=== PATIENT | female | born 1945 | race Caucasian/White ===

== ENCOUNTER 2019-04-12 15:53 | Outpatient (CLI) | payer MEDICARE | END 2019-04-12 23:59 | disposition home or self-care (01) | LOC: 64 CT 15:53 | PROVIDERS: ATTEND Internal Medicine Gastroenterology | DX: G89.18 Other acute postprocedural pain (principal); K42.9 Umbilical hernia without obstruction or gangrene; M48.56XA Collapsed vertebra, not elsewhere classified, lumbar region, initial encounter for fracture; M43.8X6 Other specified deforming dorsopathies, lumbar region | CPT/HCPCS: 74176 ==

== ENCOUNTER 2019-11-01 06:58 | Day surgery (SDC) | payer MEDICARE ==
[2019-10-31 13:28] LABS: BASOPHILS # (AUTO) 0.1 X10'3 (0-0.2); BASOPHILS % (AUTO) 0.8 % (0-1); EOSINOPHILS # (AUTO) 0.5 X10'3 (0-0.9); EOSINOPHILS % (AUTO) 6.4 % (0-6); HEMATOCRIT 41.5 % (35.0-45.0); HEMOGLOBIN 13.6 g/dl (12.0-16.0); LYMPHOCYTES # (AUTO) 2.5 X10'3 (1.1-4.8); LYMPHOCYTES % (AUTO) 34.4 % (21-51); MEAN CORPUSCULAR HEMOGLOBIN 26.8 PG (27.0-31.0); MEAN CORPUSCULAR HGB CONC 32.7 g/dL (33.0-36.5); MEAN CORPUSCULAR VOLUME 81.8 FL (78-98); MEAN PLATELET VOLUME 9.6 FL (7.4-10.4); MONOCYTES # (AUTO) 0.7 X10'3 (0-0.9); MONOCYTES % (AUTO) 10.1 % (2-12); NEUTROPHILS # (AUTO) 3.5 X10'3 (1.8-7.7); NEUTROPHILS % (AUTO) 48.3 % (42-75); PLATELET COUNT 208 X10'3 (140-440); RED BLOOD COUNT 5.08 X10'6 (4.20-5.60); RED CELL DISTRIBUTION WIDTH 15.2 % (11.5-14.5); WHITE BLOOD COUNT 7.3 X10'3 (4.5-11.0)
[2019-10-31 13:40] LABS: ALBUMIN 3.3 G/DL (3.4-5.0); ANION GAP 7 (8-16); BLOOD UREA NITROGEN 18 MG/DL (7-18); BUN/CREATININE RATIO 17.6 (6.6-38.0); CALCIUM 8.6 MG/DL (8.5-10.1); CHLORIDE 108 MMOL/L (99-107); CREATININE 1.02 MG/DL (0.40-0.90); GLUCOSE 93 MG/DL (70-104); POTASSIUM 3.7 MMOL/L (3.5-5.1); SODIUM 141 MMOL/L (135-145); TOTAL CARBON DIOXIDE 25.6 MMOL/L (24-32); eGFR 53 ML/MIN
[2019-11-01] VITALS (14 sets, daily range): BP systolic 109–170; BP diastolic 41–79
[~2019-11-01] VITALS: Ht 160 cm; Wt 85.9 kg
[2019-11-01] MEDS ORDERED: normal saline 1000ml 1,000 ML IV SCH (07:20)
[2019-11-01] MEDS ORDERED: MIDAZolam 1mg/ml 10ml vial IV ONE (07:20)
[2019-11-01] MEDS ORDERED: morphine 10mg/ml inj. IV ONE (07:20)
[2019-11-01] MEDS ORDERED: ESCI10TA61 PO (07:31)
[2019-11-01] MEDS ORDERED: ASPI-611 PO (07:31)
[2019-11-01] MEDS ORDERED: ASCO1TAB PO (07:31)
[2019-11-01] MEDS ORDERED: probiotic (07:31)
[2019-11-01] MEDS ORDERED: FOLI0.4T14 PO (07:31)
[2019-11-01] MEDS ORDERED: tumeric (07:31)
[2019-11-01] MEDS ORDERED: PRAV40TA3 PO (07:31)
[2019-11-01] MEDS ORDERED: vinegar (07:31)
[2019-11-01] MEDS ORDERED: atropine 1 MG/1 ML vial IV PRN (08:10)
[2019-11-01] MEDS ORDERED: atropine 0.1mg/ml 10ml syringe IV ONE (08:20)
== END 2019-11-01 10:20 | disposition home or self-care (01) ==
LOC: SSTAY O 06:58
PROVIDERS: ATTEND Internal Medicine Cardiovascular Disease
DX: R06.02 Shortness of breath (principal); C7A.8 Other malignant neuroendocrine tumors; I08.3 Combined rheumatic disorders of mitral, aortic and tricuspid valves; F41.9 Anxiety disorder, unspecified; F32.9 Major depressive disorder, single episode, unspecified; M19.90 Unspecified osteoarthritis, unspecified site; E78.5 Hyperlipidemia, unspecified; E78.00 Pure hypercholesterolemia, unspecified; K21.9 Gastro-esophageal reflux disease without esophagitis; Z98.890 Other specified postprocedural states; Z98.51 Tubal ligation status; Z79.899 Other long term (current) drug therapy; Z88.2 Allergy status to sulfonamides; Z87.891 Personal history of nicotine dependence
CPT/HCPCS: 36415; 80048; 85025; 85610; 93312; 93325; 94760; J2250; J2270; J7030

== ENCOUNTER 2024-01-13 10:06 | Outpatient (CLI) | payer MEDICARE ==
[~2024-01-13 10:06] MED LIST: ASCO1TAB PO; ASPI-611 PO; ESCI-8 PO; FOLI0.4T14 PO; PRAV40TA3 PO; probiotic; tumeric; vinegar
== END 2024-01-13 23:59 | disposition home or self-care (01) ==
LOC: MRI 10:06
PROVIDERS: ATTEND Podiatrist Foot & Ankle Surgery
DX: M76.811 Anterior tibial syndrome, right leg (principal); R60.0 Localized edema; M25.471 Effusion, right ankle; M21.6X1 Other acquired deformities of right foot; M79.671 Pain in right foot
CPT/HCPCS: 73721